=== PATIENT | male | born 1990 | race Caucasian/White ===

== ENCOUNTER 2018-04-25 01:32 | Emergency (ER) | payer MEDICAID, OTHER ==
[~2018-04-25] VITALS: Ht 177.8 cm; Wt 79.4 kg
[~2018-04-25 01:32] MED LIST: SULF1TAB48 PO
--- NOTE | 2018-04-25 01:55 | NUR ---
Patient BIB [id number] c/o surgical wound complications. Patient states that he "was not in the right frame of mind" and eloped from [facility] approximately 2-3 days [employer] (unknown exact date). Patient states that he does not remember eloping the hospital but thoroughly describes care experiences including referring to the nurses as "those niggers" when describing injuries to his arms from blood draws/IV attempts. Patient presents with 3 surgical wounds on the abdomen pelvis. The wound on the LEFT pelvis is covered with tegraderm and contains the tubing for a wound vac device but no collecting bulb is attached. The wound on the RIGHT pelvis is an approximate 5x2 inch open wound which appears clean at this time. Above the wound on the RIGHT pelvis, on the RLQ is a surgical scar with krunal present surrounded by mild erythema. Patient is A/O x3, ambulatory. To room 3A, ERMD at bedside for MSE.
[2018-04-25] MEDS ORDERED: IV NORMAL SALINE 1000 ML BAG IV ONE (02:15)
--- NOTE | 2018-04-25 02:45 | NUR ---
Staff and ERMD unable to establish IV access or blood draw. PICC line ordered, Nursing Test Administrator Notified.
--- NOTE | 2018-04-25 03:01 | NUR ---
Patient states that he wishes to leave AMA. Patient unable to decide whether to continue medical course of action at this time. Telephone provided to patient so that he could contact family members to discuss options.
--- NOTE | 2018-04-25 03:41 | NUR ---
Patient informed staff that he is unwilling to contact his family members due to the time, after stating he wanted to contact them to assist with deciding to continue treatment. Patient agrees to CT scan at this time. PEDRO LUIS notified.
--- NOTE | 2018-04-25 04:05 | NUR ---
Patient refuses blood draw, requesting PICC line, which was ordered.
[2018-04-25] MEDS ORDERED: ACETAMINOPHEN ES 500 MG TABLET ONE (06:17)
[2018-04-25] MEDS ORDERED: ACETAMINOPHEN 325 MG TABLET PO ONE (06:30)
--- NOTE | 2018-04-25 07:29 | NUR ---
PT TALKING TO DR. MENDOZA
--- NOTE | 2018-04-25 07:32 | NUR ---
TRIED TO CONVINCE THE PT TO STAY IN HIS ROOM. PT WALKED OUT TO GET SOME FRESH AIR.
--- NOTE | 2018-04-25 07:48 | NUR ---
CHECKED OUT SIDE MULTIPLE TIMES. PT DID NOT COME BACK
== END 2018-04-25 07:51 | disposition left against medical advice (07) ==
LOC: ER 01:35
DX: L02.211 Cutaneous abscess of abdominal wall (principal)
CPT/HCPCS: 71045; A4217; A4663; A9150; J7030